=== PATIENT | female | born 2000 | race Two or more races ===

== ENCOUNTER 2024-12-02 21:42 | Emergency (ER) | payer MEDICAID, SELFPAY ==
--- NOTE | ~2024-12-02 | XR_ITS ---
CLINICAL HISTORY: fall 3 view left ankle Comparison: None provided Findings: Bones intact. No dislocations. Discussing immature. No ankle effusion. No radiopaque foreign body. IMPRESSION: 1. No acute findings. This document has been electronically signed by: Corie Tilley MD on 12/02/2024 23:48:30
[2024-12-02 22:04] VITALS: BP 102/63; PULSE 65; RESP 20; TEMP 37; O2SAT 99; BMI 26.2
--- OUTSIDE RECORDS SUMMARY | 2024-12-03 00:09 | XMS_ITS | Clinical Summary ---
Author Organization [facility] Address [address] [place] [phone] Phone Care Team Providers Care Survey Analyst Name Role Phone Physician, No Pcp Primary Care Provider Unavaila ble Allergies Active Allergy Reactions Criticality Noted Date Comments Epinephrine Anaphylaxis High 02/28/2024 Penicillin Anaphylaxis High 02/28/2024 Medications No known medications Active Problems No known active problems Medical History Medical History Date Comments No known health problems Social History Tobacco Use Types Packs/Day Years Used Date Smoking Tobacco: Never Smokeless Tobacco: Never Tobacco Cessation:Counseling Given: Not Answered Alcohol Use Standard Drinks/Week Comments Not Currently 0 (1 standard drink = 0.6 oz pur e alcohol) Comments No Sex and Gender Information Value Date Recorded Sex Assigned at Female 02/28/2024 8:05 PM EST Legal Sex Female 7:06 PM EST Gender Identity Female 02/28/2024 8:05 PM EST Sexual Orientation Straight 02/28/2024 8: 05 PM EST Obstetrics History Last Filed Vital Signs Vital Sign Reading Time Taken Comments Blood Pressure 101/73 02/28/2024 10:07 PM EST Pulse 78 02/28/2024 10:07 PM EST Temperature 36.7 C (98 F) 02/28/2024 10:07 PM EST Respiratory Rate 18 02/28/2024 10:07 PM EST Oxygen Saturation 100% 02/28/2024 10:07 PM EST Inhaled Oxygen Concentration - - Weight 52 kg (114 lb 10.2 oz) 02/28/2024 7:38 PM EST Height 137.2 cm (4' 6 ) 02/28/2024 7:38 PM EST Body Mass Index 27.64 02/28/2024 7:38 PM EST Plan of Treatment Health Maintenance Due Date Last Done Comments HPV Vaccines (1 - 3-dose series) 2014 DTaP,Tdap,and Td Vaccines (1 - Tdap) 2018 Hepatitis B Vaccines (1 of 3 - 19+ 3-dose series) 2018 Cervical Cancer Screening: P ap Smear 2020 HIV Screening 02/29/2024 Hepatitis C Screening 02/29/2024 Social Influencers of Health Screening 02/29/2024 Depression Screening 2024 COVID-19 Vaccine (1 - 2023-2 5 season) 2024 Influenza Vaccine (#1) 2024 HIB Vaccines Aged Out No longer eligi ble based on patient's age to complete this topic Hepatitis A Vaccines Aged Out No long er eligible based on patient's age to complete this topic IPV Vaccines Aged Out No longer eligi ble based on patient's age to complete this topic MMR Vaccines Aged Out No longer eligi ble based on patient's age to complete this topic Meningococcal ACWY Vaccine Aged Out N o longer eligible based on patient's age to complete this topic Meningococcal B Vaccine Aged Out No l onger eligible based on patient's age to complete this topic Pneumococcal Vaccine: Pediat rics (0 to 5 Years) and At-Risk Patients (6 to 49 Years) Aged Out No longer eligible b ased on patient's age to complete this topic RSV Immunization Patients Un vanessa 20 months Aged Out No longer eligible b ased on patient's age to complete this topic Varicella Vaccines Aged Out No longer eligible based on patient's age to complete [place] [address] [employer] Care Teams Survey Analyst Relationship Specialty Start Date End Date Physician, No Pcp PCP - General 02/28/24
--- NOTE | 2024-12-03 01:42 | ED.GENADULT ---
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 She reports that 1 month ago she fell in twisted her ankle while chasing after a dog. She reports that she still has pain to the left ankle and indicates the lateral ankle. She has been walking but with pain. She reports that she did not have health insurance previously so is just now seeking care Denies any more recent injuries She reports that her pain is no better than when she 1st injured it 1 month ago, it is 09/26 Related Data Allergies Allergy/AdvReac Type Severity Reaction Status Date / Time Penicillins AdvReac Anaphylaxis Verified 12/02/24 22:11 Review of Systems Constitutional: Constitutional: Denies body ache(s), Denies chills, Denies fever(s) and Denies headache(s) Eyes: Eyes: Denies blurry vision ENT: Denies vertigo, Denies dizziness and Denies headache(s) Cardiovascular: Cardiovascular: Denies chest pain and Denies dyspnea on exertion Respiratory: Respiratory: Denies cough and Denies dyspnea on exertion Gastrointestinal: Gastrointestinal: Denies abdominal pain, Denies nausea and Denies vomiting Musculoskeletal: Musculoskeletal: Reports arthralgias, Reports joint swelling and Reports limited range of motion Integumentary/Breasts: Skin/Breast: Denies rash Neurologic: Denies vertigo, Denies dizziness and Denies headache(s) PMFSH Social History Social History Advance Directives: No Advance Directives Information Provided: Yes Do you have a plan to hurt others: No Plan Physical Exam ED Vital Signs: Vital Signs - 24 hr 12/02/24 22:04 Temperature 98.6 F Pulse Rate 65 Respiratory Rate 20 Blood Pressure 102/63 Pulse Oximetry 99 Oxygen Delivery Method Room Air BMI result Body Mass Index 26.2 Const General: healthy appearing, comfortable, no acute distress, alert and awake Nutritional Appearance: well nourished Orientation/consciousness: patient oriented x3 HENMT Head: Yes normocephalic and Yes atraumatic Eyes Eyelids: Yes eyelids normal Conjunctivae: conjunctivae normal Sclerae: sclerae normal Corneas: corneas normal Pupils: Equal, round and reactive pupils present EOM: EOMs intact bilaterally Neck Neck: Yes full ROM Resp Effort & Inspection: normal respiratory effort, able to speak in complete sentences and not labored Skin General skin exam: elasticity normal Neuro General: patient oriented x3 Cranial nerves: Yes Equal, round and reactive pupils present and Yes Bilaterally intact EOM present Cognition (Neuro): normal cognition Extrem Other: There is mild tenderness to the left lateral malleolus. No palpable deformity. No Achilles tenderness. There was also tenderness over the left talofibular ligament. Medical Decision Making Medical Decision Making MDM Narrative: 24-year-old female presents for evaluation of left ankle pain from an injury with a happened 1 month ago. X-rays negative for fracture. She has been ambulating for the last month. That has no significant edema or ecchymosis. I have a low suspicion for ligamentous tear. She will be discharged with continued recommendations for symptomatic care and she will be referred to Orthopedics for outpatient management. There are no wounds, no infectious signs or symptoms Differential Diagnosis Differential Diagnoses: The differential diagnosis associated with the presentation includes Ankle sprain Contusion Fracture Dislocation Independent Interpretation I performed an independent interpretation of an: Plain X-Ray (No obvious fracture of the left ankle) Radiology Impression Discussion of test interpretation with radiology: I have reviewed the radiologist's reading. Radiologist Impression: Findings: Bones intact. No dislocations. Discussing immature. No ankle effusion. No radiopaque foreign body. IMPRESSION: 1. No acute findings. This document has been electronically signed by: Corie Tilley MD on 12/02/2024 23:48:30 Discharge Plan Discharge Clinical Impression: Inversion sprain of left ankle Patient Disposition: Home, Self-Care Instructions: Ankle Sprain (ED) Additional Instructions: Your x-ray did not show any fracture. In his likely that you have an ankle sprain. Use ibuprofen/Tylenol for pain. Ice the painful area as needed. You may follow up with Orthopedics, as you may benefit from an MRI if your pain does not improve to evaluate for ligament or tendon injury Referrals: [facility] [Provider Group] Referral Note: left ankle sprain Print Language: Korean
[2024-12-03 02:16] VITALS: BP 102/63; PULSE 65; RESP 20; TEMP 37; O2SAT 99
== END 2024-12-03 02:17 | disposition home or self-care (01) ==
PROVIDERS: Emergency Provider Emergency Medicine
DX: S93.402A Sprain of unspecified ligament of left ankle, initial encounter (principal); X50.1XXA Overexertion from prolonged static or awkward postures, initial encounter; Y93.K1 Activity, walking an animal; Y92.9 Unspecified place or not applicable; Y99.9 Unspecified external cause status; M25.572 Pain in left ankle and joints of left foot
CPT/HCPCS: 73600; 99282; 99283

== ENCOUNTER → 2024-12-02 22:15 | Outpatient (BNV) | payer MEDICAID, SELFPAY | PROVIDERS: Visit Provider Radiology Diagnostic Radiology | DX: M25.572 Pain in left ankle and joints of left foot (principal); W19.XXXA Unspecified fall, initial encounter | CPT/HCPCS: 73600 ==